=== PATIENT | male | born 1975 | race Caucasian/White ===

== ENCOUNTER → 2017-04-22 | Outpatient (CLI) | payer OTHER ==
[~2017-04-22] MED LIST: AMLODIPINE BESY10 MG PO; ATENOLOL-CHLOR1 EACH PO; DIAZEPAM PO; GABAPENTIN400 M2 PO; HYDROCODON-ACE1 EAC5 PO; OMEPRAZOLE20 M2 PO; PERCOCET5/325 PO; XARELTO10 MG PO; ZYRTEC10 M1 PO
--- NOTE | ~2017-04-22 | EKG ---
PATIENT: TEO MIXON UNIT #: [id number] Ventricular Rate: 67 BPM Atrial Rate: 67 BPM P-R Interval: 132 ms QRS Duration: 68 ms Q-T Interval: 384 ms QTC Calculation(Bezet): 405 ms P [place]: 41 degrees Calculated R [place]: 28 degrees Calculated T [place]: 64 degrees Diagnosis Line: Normal sinus rhythm Diagnosis Line: Normal ECG Diagnosis Line: When compared with ECG of 22-APR-2017 10:55, Diagnosis Line: (unconfirmed) Diagnosis Line: No significant change was found Diagnosis Line: Confirmed by TRISTAN MATHEWS MD ([id number]) on 04/23/2017 Diagnosis Line: 11:40:11 PM INTERPRETING MD: BISI JONES
[2017-04-22 11:16] LABS: HEMATOCRIT 42.1 % (38.0-50.0); HEMOGLOBIN 14.6 gm/dL (13.0-16.0); MEAN CELL VOLUME 87.2 FL (83-96); MEAN CORPUSCULAR HEMOGLOBIN 30.3 PG (28-34); MEAN CORPUSCULAR HGB CONC 34.8 g/dL (30-36); MEAN PLATELET VOLUME 8.4 FL (6.5-11.5); RED BLOOD COUNT 4.82 X10e (3.90-5.60); RED CELL DISTRIBUTION WIDTH 13.1 % (11.0-15.5); WHITE BLOOD COUNT 9.7 X10e3 (4.0-10.5)
[2017-04-22 11:17] LABS: URINE APPEARANCE CLEAR; URINE BILIRUBIN NEG (NEG); URINE BLOOD NEG (NEG); URINE COLOR YELLOW; URINE GLUCOSE NEG (NEG); URINE KETONE NEG (NEG); URINE LEUKOCYTE ESTERASE TRACE (NEG); URINE NITRATE NEG (NEG); URINE PH 6.5 (5-8); URINE PROTEIN NEG (NEG); URINE SPECIFIC GRAVITY 1.019 (1.003-1.035)
[2017-04-22 11:20] LABS: URBCS1 AUWI 0-2 /[HPF] (0-2); URINE BACTERIA AUWI NEG (NEGATIVE); URINE SQUAMOUS EPITHELIAL CELL NONE SEEN /[HPF]
[2017-04-22 11:22] LABS: CULTURE INDICATED? NO; URINE SOURCE CLEAN CATCH
[2017-04-22 11:56] LABS: BUN/CREATININE RATIO 12.22; CALCIUM SERUM 9.6 mg/dL (8.4-10.2); CREATININE SERUM 0.9 mg/dL (0.6-1.4); GLOM FILT RATE Estimated 104.2 mL/min (>60); POTASSIUM 4.6 mmol/L (3.5-5.1)
== END | disposition home or self-care (01) ==
LOC: CAMB 10:37
PROVIDERS: Orthopaedic Surgery
DX: Z01.818 Encounter for other preprocedural examination (principal)
CPT/HCPCS: 36415; 80048; 81003; 85027; 86850; 86900; 86901; 87070; 93005

== ENCOUNTER 2017-05-07 10:04 | Inpatient (IN) | payer OTHER ==
--- NOTE | ~2017-05-07 | CR144 ---
[facility] A Service of [facility] RADIOLOGY TEXT RESULTS PATIENT: TEO MIXON LOCATION: [place] [address] : [birth year] UNIT #: [id number] AGE: [address]: Zoe Parr MD SEX: M ORDER DR: [id number] [facility]. [facility] [address] [place], [place] [address] [id number] I MR#: [id number] Acc #: [id number] NAME: TEO MIXON : 1975 SEX: M STUDY DATE/TIME: 05/07/2017 18:46 UNIT: CPACUOF ROOM: 99222 STUDY DESCRIPTION: CR Hip 1 View Lt Attending Physician: Sid Parr M.D. Ordering Physician: Sid Parr M.D. Primary Care Physician: Generic Doctor Not In System MEDICAL IMAGING REPORT This report is preliminary unless electronic signature is present EXAM Left hip HISTORY Postop total hip. TECHNIQUE Single AP view of the hip was obtained. FINDINGS Alignment position across hip prosthesis is satisfactory. No immediate postoperative complications are seen. STAT * RESULT Dictated by... Mateusz Clemente M.D. THIS IS AN ELECTRONICALLY VERIFIED REPORT Mateusz Clemente M.D. at 05/07/2017 10:24 PM RLF/to TD: 05/07/2017 19:12 JOB #: [id number] MEDICAL IMAGING REPORT Page 1 of 1 COPY
--- NOTE | ~2017-05-07 | DS ---
Unit #: [id number] #: [id number] Patient: TEO MIXON [id number] [address] [place], [place] [address] [id number] I MR#: [id number] NAME: TEO MIXON ROOM: 450 Age: 42 Sex: M Admission Date: 05/07/2017 : 1975 Discharge Date: Attending Physician: Sid Parr M.D. Primary Care Physician: Generic Doctor Not In System DISCHARGE SUMMARY CHIEF COMPLAINT Left hip pain. HISTORY OF PRESENT ILLNESS The patient is a 42-year-old male with avascular necrosis of the left hip. The cause is unknown. 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 The patient is admitted for a left total hip arthroplasty. He has pains with activities of daily living and failed all conservative measures. HOSPITAL COURSE The patient was taken to the operating room on the day of admission where he underwent successful elective left press-fit total hip arthroplasty using a Ann accolade stem. There were no operative complications. He had a stable postoperative course. Drain was removed on the second postoperative day. His wound was healing well. His hematocrit was 29.3% on the second postoperative day. Pain was controlled with morphine, MEDICAL ASSEMBLER and oral narcotics. He is ready for discharge on the second postoperative day. FINAL DIAGNOSIS Left hip avascular necrosis. DISPOSITION AND RECOMMENDATIONS 1. The patient is discharge home. 2. He can get the wound wet after five days. 3. He can weight bear as tolerated using a walker. He will give home physical therapy through the visiting nurse association. DISCHARGE MEDICATIONS Remain the same as home medications with the addition of Xarelto 10 mg p.o. daily for four weeks and Percocet 5/325 one or two p.o. q.4-6 hours p.r.n. pain, dispense 50. FOLLOWUP Followup in my office in two weeks for staple removal. The patient was also instructed on total hip precautions. Dictated by... Sid Parr M.D. Unit #: [id number] #: [id number] Patient: TEO MIXON RTH/ts TD: 05/09/2017 09:15 JOB #: [id number] DISCHARGE SUMMARY Page 1 of 1 X Zoe Parr MD DISCHARGE SUMMARY
--- NOTE | ~2017-05-07 | CR206 ---
[facility] A Service of [facility] RADIOLOGY TEXT RESULTS PATIENT: TEO MIXON LOCATION: [address] 450[address]01 : [birth year] UNIT #: [id number] AGE: [address]: Zoe Parr MD SEX: M ORDER DR: [id number] [facility] [address] [place], [place] [address] [id number] I MR#: [id number] Acc #: [id number] NAME: TEO MIXON : 1975 SEX: M STUDY DATE/TIME: 05/08/2017 9:29 UNIT: [facility] ROOM: [facility] STUDY DESCRIPTION: CR Pelvis 1 or 2 Views Attending Physician: Sid Parr M.D. Ordering Physician: Sid Parr M.D. Primary Care Physician: Generic Doctor Not In System MEDICAL IMAGING REPORT This report is preliminary unless electronic signature is present EXAM Pelvis, 05/08/2017 HISTORY 42-year-old male with left hip pain for 1 day, status post total hip arthroplasty. COMPARISON Left hip, 05/07/2017 FINDINGS A single frontal view of the pelvis again demonstrates postoperative changes from a total left hip arthroplasty. No evidence of hardware complication. Surgical drains and skin clips overlie the operative field. Bony pelvis intact. Right hip appears unremarkable. IMPRESSION Stable postoperative changes from left hip arthroplasty. No acute findings. Dictated by... Andrey Healy M.D. THIS IS AN ELECTRONICALLY VERIFIED REPORT Andrey Healy M.D. at 05/09/2017 5:55 AM ROSEY/mariah TD: 05/08/2017 21:08 JOB #: [id number] MEDICAL IMAGING REPORT Page 1 of 1 COPY
--- NOTE | ~2017-05-07 | OR ---
Unit #: [id number] #: [id number] Patient: TEO MIOXN [id number] [address] [place], [place] [address] [id number] I MR#: [id number] NAME: TEO MIXON ROOM: [facility] Date of Procedure: 05/07/2017 Admission Date: 05/07/2017 Surgeon: Sid Parr M.D. : 1975 Attending Physician: Sid Parr M.D. Primary Care Physician: Generic Doctor Not In System OPERATIVE REPORT PREOPERATIVE DIAGNOSIS Left femoral head and neck avascular necrosis. POSTOPERATIVE DIAGNOSIS Left femoral head and neck avascular necrosis. PROCEDURE PERFORMED Left total hip arthroplasty (57518). ASSISTANTS Darrell and Molly. ANESTHESIA General. INDICATIONS FOR SURGERY The patient is a 42-year-old male with significant left hip pain secondary to avascular necrosis of the femoral head and neck. The patient has a history of possible heavy drinking in the past, but no other risks of avascular necrosis. He also has early AVN of the right hip and AVN of the right ankle. The patient has pain with activities of daily living and it is not responded to conservative care. He is therefore to undergo elective total hip arthroplasty. DESCRIPTION OF PROCEDURE The patient was taken to the operating room and placed in supine position and general endotracheal anesthesia was induced. He was placed in a right lateral decubitus position and positioned with the aid of a beanbag. All bony prominences were well padded. An axillary roll was placed. The left hip was identified as the correct operative location during the time-out procedure. The IV antibiotic protocol was followed. The left hip was then prepped and draped in the usual sterile fashion. A 15 cm lateral longitudinal incision was made over the greater trochanter. The subcutaneous tissue was divided. The iliotibial band was opened. The hip was internally rotated. The short external rotators were tagged with #1 Ethibond. The short external rotators were then removed from the posterolateral aspect of the proximal femur with electrocautery. The hip capsule was opened and T'd. The femoral neck was exposed with Hohmann retractors. The sagittal saw was used to make a femoral neck cut Unit #: [id number] #: [id number] Patient: TEO MIXON one fingerbreadth superior to the lesser trochanter. The head was removed. Acetabular retractors were placed. The labrum was excised from the periphery of the acetabulum beginning with a 48 mm diameter reamer. The acetabulum was reamed in a sequential fashion up to a 54 mm diameter. A trial 54 mm cup was placed and found to be stable. The final Freeland Trident PSL RMOAN cluster acetabular 54 mm diameter cup was impacted into place and fixated with two 6.5 mm diameter cancellous screws. Excellent fixation was achieved. A trial liner was placed and attention was redirected to the femur. The box osteotome was used. The tapered reamer was used to enter the femoral canal. The trochanteric reamers were then used. The proximal femur was then sequentially reamed and broached with Accolade stem broaches up to a size #6. The hip was reduced and found to be stable. The final polyethylene 10 degree insert was then impacted into place and the 36 mm diameter 0 mm neck length femoral head was impacted. The hip was stable to 70 degrees of internal rotation. Leg lengths appeared to be equal. A 3-minute dilute Betadine wash was then applied. A mixture of ropivacaine, clonidine, and epinephrine was then injected into the capsule, subcutaneous tissue, and muscular layers. A medium Hemovac drain was placed. The short external rotators were repaired back to the femur through two drill holes using the #1 Ethibond suture. The iliotibial band was then closed with 0 Vicryl [id number]-[id number] sutures. Subcutaneous tissue was closed with 2-0 Vicryl and the skin was closed with skin sammie. Xeroform gauze, dressing, and sponges were placed. The patient was then placed in a hip abduction pillow. He was then transported to the recovery room in stable condition. ESTIMATED BLOOD LOSS Minimal. COMPLICATIONS None. SPECIMENS Femoral head. TOURNIQUET TIME Zero. Dictated byYamilex Arenas/kathya TD: 05/07/2017 18:07 JOB #: [id number] Unit #: [id number] #: [id number] Patient: TEO MIXON OPERATIVE REPORT Page 1 of 1 X Zoe Parr MD PROCEDURE OPERATIVE NOTE
--- NOTE | ~2017-05-07 | HP ---
Unit #: [id number] #: [id number] Patient: TEO MIXON [id number] [place] [id number] [facility]. [place], [place] [address] [id number] I MR#: [id number] NAME: TEO MIXON ROOM: Age: Sex: M Admission Date: 05/07/2017 : 1975 Attending Physician: Sid Parr M.D. Primary Care Physician: Generic Doctor Not In System HISTORY AND PHYSICAL CHIEF COMPLAINT Left hip pain. HISTORY OF PRESENT ILLNESS The patient is 42-year-old male with right ankle pain and left hip pain. His hip actually hurts worse than his ankle. He has had to use a cane for the past 4 months. He has to wear a Cam Boot on his right ankle. His left hip x-rays were normal, but an MRI of the left hip demonstrated avascular necrosis of the hip. He currently takes hydrocodone 10 mg four times a day to control the pain. He denies a history of alcohol abuse, prednisone use, trauma, deep sea diving or other medical conditions, which may cause avascular necrosis. The patient is admitted for elective left total hip arthroplasty. He will then require right total ankle arthroplasty. PAST MEDICAL HISTORY Remarkable for tobacco abuse. He smokes 2 packs per day. He has a history of left ankle ORIF 20 years ago. He also has allergic rhinitis, anxiety, gastroesophageal reflux disease, hypertension, osteoporosis. HOME MEDICATIONS Amlodipine, atenolol, diazepam, gabapentin, hydrocodone, Prilosec. ALLERGIES None. PAST SURGICAL HISTORY Left ankle ORIF. SOCIAL HISTORY The patient is a 5-fdxe-wzs-day smoker. He drinks 6 beers per week. He denies a previous history of alcohol abuse. FAMILY HISTORY Arthritis and hypertension. REVIEW OF SYSTEMS Review of systems is, otherwise, unremarkable. PHYSICAL EXAMINATION WEIGHT/HEIGHT: Height 5'10'. Weight 218 pounds. GENERAL: This is a well-developed, well-nourished male in no acute distress. HEENT: Pharynx is clear. NECK: The neck is supple without masses. Unit #: [id number] #: [id number] Patient: TEO MIXON HEART: Heart exam reveals a regular sinus rhythm without murmurs or gallops. LUNGS: The lungs are clear. ABDOMEN: The abdomen is soft and nontender. EXTREMITIES: Examination of the left hip demonstrates an extremely limited range of motion with hip abduction limited to 20 degrees, flexion 80 degrees, external rotation 20 degrees, internal rotation 0 degrees. Leg lengths are equal. Pulses are normal. Sensation is normal. Motor exam is normal. DIAGNOSTIC STUDIES IMAGING: AP and lateral views of the left hip are normal. MRI documents avascular necrosis of the femoral head down into the talar neck. There is no evidence of collapse. IMPRESSION Symptomatic left hip avascular necrosis. PLAN 1. I do not feel the patient is amenable to (1) decompression. I would, therefore, recommend hip replacement. 2. The patient will, therefore, undergo left total hip arthroplasty using Press-Fit stem and cup. This procedure was described, along with the risks of bleeding, infection, nerve damage, the need for further surgery in the future, prolonged recovery time, deep venous thrombosis, pulmonary embolism, anesthetic complications, loosening of the prosthesis, infection of the prosthesis, dislocation of the prosthesis, need for multiple revisions in the future. He understands the above risks and agrees to proceed. Dictated by Yamilex Vasquez/jyotsna TD: 05/05/2017 08:16 JOB #: [id number] HISTORY AND PHYSICAL Page 1 of 1 X Zoe Parr MD X HISTORY AND PHYSICAL
[~2017-05-07 10:04] MED LIST changes: -GABAPENTIN400 M2 PO; -PERCOCET5/325 PO; -XARELTO10 MG PO
[2017-05-07] MEDS ORDERED: GABAPENTIN400 M2 PO (10:51)
[2017-05-07 18:34] LABS: HEMATOCRIT 34.7 % (38.0-50.0); HEMOGLOBIN 11.7 gm/dL (13.0-16.0)
[2017-05-08 03:40] LABS: BASOPHIL% 0.4 % (0-2.5); DIFF IND NO; EOSINOPHIL# 0.1 X10e3 (0-0.7); EOSINOPHIL% 0.9 % (0.0-7.0); HEMATOCRIT 30.8 % (38.0-50.0); HEMOGLOBIN 10.3 gm/dL (13.0-16.0); LYMPHOCYTE# 2.5 X10e3 (1.0-3.5); LYMPHOCYTE% 21.4 % (17.0-45.0); MEAN CELL VOLUME 88.9 FL (83-96); MEAN CORPUSCULAR HEMOGLOBIN 29.8 PG (28-34); MEAN CORPUSCULAR HGB CONC 33.5 g/dL (30-36); MEAN PLATELET VOLUME 8.6 FL (6.5-11.5); MONOCYTE# 1.3 X10e3 (0-1.0); MONOCYTE% 10.9 % (3.0-12.0); NEUTROPHIL# 7.8 X10e3 (1.5-7.1); NEUTROPHIL% 66.4 % (40-75); PLATELET COUNT 179 X10e3 (140-420); RED BLOOD COUNT 3.47 X10e (3.90-5.60); RED CELL DISTRIBUTION WIDTH 13.8 % (11.0-15.5); WHITE BLOOD COUNT 11.8 X10e3 (4.0-10.5)
[2017-05-08 03:45] LABS: INR 1.1; PROTHROMBIN TIME (PATIENT) 11.8 SECONDS (10.0-11.7)
[2017-05-09 02:24] LABS: BASOPHIL# 0.1 X10e3 (0-0.3); BASOPHIL% 0.6 % (0-2.5); EOSINOPHIL# 0.1 X10e3 (0-0.7); EOSINOPHIL% 1.1 % (0.0-7.0); HEMATOCRIT 29.3 % (38.0-50.0); HEMOGLOBIN 9.7 gm/dL (13.0-16.0); LYMPHOCYTE# 2.3 X10e3 (1.0-3.5); LYMPHOCYTE% 20.7 % (17.0-45.0); MEAN CELL VOLUME 90.2 FL (83-96); MEAN CORPUSCULAR HEMOGLOBIN 29.9 PG (28-34); MEAN CORPUSCULAR HGB CONC 33.1 g/dL (30-36); MEAN PLATELET VOLUME 8.5 FL (6.5-11.5); MONOCYTE# 1.4 X10e3 (0-1.0); MONOCYTE% 12.8 % (3.0-12.0); NEUTROPHIL# 7.1 X10e3 (1.5-7.1); NEUTROPHIL% 64.8 % (40-75); PLATELET COUNT 179 X10e3 (140-420); RED BLOOD COUNT 3.25 X10e (3.90-5.60); RED CELL DISTRIBUTION WIDTH 13.6 % (11.0-15.5)
[2017-05-09 02:26] LABS: DIFF IND NO
[2017-05-09 02:37] LABS: INR 1.2; PROTHROMBIN TIME (PATIENT) 13.4 SECONDS (10.0-11.7)
[2017-05-10 02:56] LABS: BASOPHIL# 0.1 X10e3 (0-0.3); BASOPHIL% 0.6 % (0-2.5); EOSINOPHIL# 0.2 X10e3 (0-0.7); HEMATOCRIT 26.4 % (38.0-50.0); HEMOGLOBIN 8.9 gm/dL (13.0-16.0); LYMPHOCYTE# 2.2 X10e3 (1.0-3.5); LYMPHOCYTE% 20.4 % (17.0-45.0); MEAN CELL VOLUME 89.3 FL (83-96); MEAN CORPUSCULAR HEMOGLOBIN 30.2 PG (28-34); MEAN CORPUSCULAR HGB CONC 33.8 g/dL (30-36); MONOCYTE# 1.2 X10e3 (0-1.0); MONOCYTE% 11.8 % (3.0-12.0); NEUTROPHIL# 6.9 X10e3 (1.5-7.1); NEUTROPHIL% 65.2 % (40-75); PLATELET COUNT 183 X10e3 (140-420); RED BLOOD COUNT 2.96 X10e (3.90-5.60); RED CELL DISTRIBUTION WIDTH 13.7 % (11.0-15.5); WHITE BLOOD COUNT 10.6 X10e3 (4.0-10.5)
[2017-05-10 03:09] LABS: DIFF IND NO
[2017-05-10] MEDS ORDERED: XARELTO10 MG PO (10:11)
[2017-05-10] MEDS ORDERED: PERCOCET5/325 PO (10:12)
== END 2017-05-10 13:00 | disposition home health service (06) | DRG 470 ==
LOC: CSUR 10:04 → CPACUOF 10:51 → CSUR 12:30 → CPACUOF 17:30 → C4B 20:45
PROVIDERS: Orthopaedic Surgery
PROC: 0SRB0JA Replacement of Left Hip Joint with Synthetic Substitute, Uncemented, Open Approach (ICD-10-PCS; principal; 2017-05-07 12:30)
DX: M87.9 Osteonecrosis, unspecified (principal); I10 Essential (primary) hypertension; F17.200 Nicotine dependence, unspecified, uncomplicated; K21.9 Gastro-esophageal reflux disease without esophagitis; F41.9 Anxiety disorder, unspecified; M81.0 Age-related osteoporosis without current pathological fracture; Z82.49 Family history of ischemic heart disease and other diseases of the circulatory system; J44.9 Chronic obstructive pulmonary disease, unspecified
CPT/HCPCS: 72170; 73501; 85014; 85018; 85025; 85610; 86850; 86900; 86901; 86923; 88305; 88311; 94760; 97110; 97116; 97161; 97166; 97530; 97535; C1776; G8978-GP; G8979-GP; G8987-GO; G8988-GO; G8989-GO; J0131; J0171; J0690; J0735; J1170; J1885; J2250; J2270; J2795; J3010